=== PATIENT | female | born 1995 | race Caucasian/White ===

== ENCOUNTER 2024-01-02 14:20 | Inpatient (IN) | payer OTHER ==
[2024-01-02] MEDS: ELECTROLYTE-148 SOLN 500 ML IV ONE (16:18)
[2024-01-02] MEDS ORDERED: ZOLPIDEM TARTRATE 5 MG TABLET PO PRN (19:43)
[2024-01-02] MEDS: ELECTROLYTE-148 SOLN 1,000 ML IV SCH (19:45)
[2024-01-02 20:03] LABS: BASO % 0.3 % (0-2.0); EOS % 2.5 % (0-4.5); HEMATOCRIT 34.5 % (32.4-45.2); HEMOGLOBIN 11.7 GM/dL (10.7-15.3); LYMPH % 14.8 % (8-40); MCH 32.3 pg (25.7-33.7); MCHC 33.8 g/dl (32.0-36.0); MEAN CELL VOLUME 95.5 fl (80-96); MEAN PLT VOLUME 10.4 fl (7.5-11.1); MONO % 9.3 % (3.8-10.2); NEUT % 73.1 % (42.8-82.8); PLATELET COUNT 160 10^3/uL (134-434); RBC 3.62 M/mm3 (3.60-5.2); RDW 14.1 % (11.6-15.6)
[2024-01-02 20:13] LABS: INR 0.87 (0.83-1.09); PROTHROMBIN TIME (PATIENT) 9.9 SEC (9.7-13.0)
[2024-01-02 20:15] LABS: ACTIVATED PTT 25.5 SECONDS (25.2-36.5)
[2024-01-02] MEDS ORDERED: LABETALOL HCL 100 MG TABLET (FP) ONE (20:15)
[2024-01-02] MEDS: LABETALOL HCL 100 MG TABLET (FP) PO SCH (20:15)
[2024-01-02 20:23] LABS: POTASSIUM 4.2 mmol/L (3.5-5.1)
[2024-01-02 20:24] LABS: BLOOD UREA NITROGEN 11.7 mg/dL (7-18); CALCIUM 9.5 mg/dL (8.5-10.1)
[2024-01-02 20:28] LABS: CREATININE 0.7 mg/dL (0.55-1.3)
[2024-01-02 20:55] VITALS: BMI 26.3
[2024-01-03] MEDS ORDERED: AMPICILLIN SODIUM 2 GM VIAL ONE (00:33)
[2024-01-03] MEDS: AMPICILLIN - 2 GM in SODIUM CHLORIDE 100 ML IVPB ONE (00:35)
[2024-01-03] MEDS ORDERED: FENTANYL/BUPIVACAINE/NS/PF - PCEA - 50 ML DISP.SYRIN EP ONE (00:47)
[2024-01-03] MEDS: FENTANYL/BUPIVACAINE/NS/PF - PCEA - 50 ML DISP.SYRIN EP SCH (01:25)
[2024-01-03] MEDS ORDERED: NALOXONE HCL 0.4 MG/ML VIAL IVPUSH PRN (01:26)
[2024-01-03] MEDS ORDERED: AMPICILLIN SODIUM 1 GM VIAL ONE (03:49)
[2024-01-03] MEDS: AMPICILLIN - 1 GM in SODIUM CHLORIDE 100 ML IVPB SCH (03:50)
[2024-01-03] MEDS ORDERED: LABETALOL HCL 100 MG TABLET (FP) ONE (03:57)
[2024-01-03] MEDS: LABETALOL HCL 100 MG TABLET (FP) PO SCH (04:00)
[2024-01-03] MEDS ORDERED: LIDOCAINE HCL 1% PRESERVATIVE FREE - 30ML VIAL ONE (04:12)
[2024-01-03] MEDS ORDERED: OXYTOCIN 20 UNITS in 0.9% NS 20 UNIT/1,000 ML INFUS.BAG IV ONE (04:12)
[2024-01-03] MEDS: PROMETHAZINE HCL 25 MG/1 ML VIAL IVPB ONE (04:28)
[2024-01-03] MEDS: BUTORPHANOL TARTRATE 2 MG/ML VIAL IVPB ONE (04:28)
[2024-01-03] MEDS: OXYTOCIN 20 UNITS in 0.9% NS 20 UNIT/1,000 ML INFUS.BAG IV SCH (05:00)
[2024-01-03] MEDS ORDERED: METHYLERGONOVINE MALEATE 0.2 MG/1 ML AMP IM PRN (05:33)
[2024-01-03] MEDS ORDERED: BENZOCAINE 20% 57 GM BOTTLE TP PRN (05:33)
[2024-01-03] MEDS ORDERED: BENZOCAINE 28 GM HEMORRHOIDAL OINTMENT TP PRN (05:33)
[2024-01-03] MEDS ORDERED: WITCH HAZEL 50% (TUCKS) 40 PAD/JAR PAD TP PRN (05:33)
[2024-01-03] MEDS ORDERED: oxyCODONE HCL 5 MG TABLET PO PRN (05:33)
[2024-01-03] MEDS ORDERED: BISACODYL 10 MG SUPP.RECT RC PRN (05:33)
[2024-01-03] MEDS: IBUPROFEN 600 MG TABLET (FP) PO PRN (06:07)
[2024-01-03] MEDS: LABETALOL HCL 200 MG TABLET (FP) PO SCH (10:46)
[2024-01-03] MEDS ORDERED: ONDANSETRON 4 MG TABLET PO PRN (11:06)
[2024-01-03] MEDS: PRAMOXINE HCL/CALAMINE 177 ML LOTION TP SCH (14:03)
[2024-01-04] MEDS: CALMINE 3% AND PRAMOXINE 1% 118 ML BOTTLE TP SCH (02:05)
[2024-01-04 06:59] LABS: BASO % 0.6 % (0-2.0); EOS % 1.7 % (0-4.5); HEMATOCRIT 31.4 % (32.4-45.2); HEMOGLOBIN 10.5 GM/dL (10.7-15.3); LYMPH % 13.3 % (8-40); MCH 32.3 pg (25.7-33.7); MCHC 33.5 g/dl (32.0-36.0); MEAN CELL VOLUME 96.4 fl (80-96); MEAN PLT VOLUME 9.7 fl (7.5-11.1); MONO % 5.6 % (3.8-10.2); NEUT % 78.8 % (42.8-82.8); PLATELET COUNT 155 10^3/uL (134-434); RBC 3.26 M/mm3 (3.60-5.2); RDW 14.5 % (11.6-15.6); WHITE BLOOD COUNT 12.8 K/mm3 (4.0-10.0)
[2024-01-04] MEDS ORDERED: SENNOSIDES/DOCUSATE COMBO (SENNA PLUS) TABLET (UD) PO PRN (22:00)
[2024-01-04] MEDS: ACETAMINOPHEN 325 MG TABLET (FP) PO PRN (22:27)
[2024-01-05 11:15] VITALS: BP 126/82; PULSE 84; RESP 16; TEMP 97.8
== END 2024-01-05 14:15 | disposition home or self-care (01) | DRG 560 ==
LOC: JDEL 14:20 → JLDR 19:31 → J3W 01-03 08:00
PROVIDERS: ADMIT Specialist; ATTEND Specialist
PROC: 10E0XZZ Delivery of Products of Conception, External Approach (ICD-10-PCS; principal; 2024-01-03)
PROC: 0HQ9XZZ Repair Perineum Skin, External Approach (ICD-10-PCS; 2024-01-03)
DX: O70.0 First degree perineal laceration during delivery (principal); Z3A.39 39 weeks gestation of pregnancy; Z37.0 Single live birth
CPT/HCPCS: 36415; 59409; 80048; 85025; 85610; 85730; 86780; 86850; 86900; 86901